=== PATIENT | female | born 1995 | race American Indian/Alaskan Native ===

== ENCOUNTER 2016-12-01 10:10 | Emergency (ER) | payer OTHER, BC ==
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
[2016-12-01] MEDS ORDERED: Ketorolac 30 MG/ML SDV IM ONE (12:32)
[2016-12-01] MEDS ORDERED: Dexamethasone 4 MG/ML SDV IM ONE (12:32)
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
[2016-12-01 13:49] VITALS: BP 118/72
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
== END 2016-12-01 13:50 | disposition home or self-care (01) ==
LOC: DL.ED 10:10
DX: S39.012A Strain of muscle, fascia and tendon of lower back, initial encounter (principal); E66.9 Obesity, unspecified; F41.9 Anxiety disorder, unspecified; F32.9 Major depressive disorder, single episode, unspecified; Z87.891 Personal history of nicotine dependence; Z88.1 Allergy status to other antibiotic agents; Z88.8 Allergy status to other drugs, medicaments and biological substances; Z91.018 Allergy to other foods; Z79.899 Other long term (current) drug therapy; Z88.0 Allergy status to penicillin; Z88.2 Allergy status to sulfonamides; X58.XXXA Exposure to other specified factors, initial encounter
CPT/HCPCS: 72128; 72131; 96372; 99284; J1100; J1885

== ENCOUNTER 2016-12-03 12:42 | Emergency (ER) | payer OTHER, BC ==
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
== END 2016-12-03 13:56 | disposition home or self-care (01) ==
LOC: DL.ED 12:42
CPT/HCPCS: 99283

== ENCOUNTER 2017-12-02 12:40 | Emergency (ER) | payer BC, OTHER ==
[2017-12-02 12:51] VITALS: BP 136/86
[2017-12-02 13:41] LABS: CHLORIDE,CL 101 mmol/L (101-111); SODIUM,NA 137 mmol/L (135-145)
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
== END 2017-12-02 15:40 | disposition home or self-care (01) ==
LOC: DL.ED 12:40
DX: O03.4 Incomplete spontaneous abortion without complication (principal); N91.2 Amenorrhea, unspecified; Z88.1 Allergy status to other antibiotic agents; Z88.0 Allergy status to penicillin; Z88.2 Allergy status to sulfonamides; Z88.8 Allergy status to other drugs, medicaments and biological substances; Z79.899 Other long term (current) drug therapy; Z87.891 Personal history of nicotine dependence
CPT/HCPCS: 36415; 80053; 80305; 81001; 81025; 84702; 85025; 99284; G0480

== ENCOUNTER 2018-04-13 06:16 | Day surgery (SDC) | payer BC ==
[2018-04-13] MEDS ORDERED: Ondansetron 4 MG/2 ML SDV IV ONE (06:17)
[2018-04-13] MEDS ORDERED: Propofol 200 MG/20 ML SDV IV ONE (06:17)
[2018-04-13] MEDS ORDERED: Dexamethasone 4 MG/ML SDV IV ONE (06:17)
[2018-04-13] MEDS ORDERED: Lidocaine 2% 20 ML MDV INJECT ONE (06:17)
[2018-04-13] MEDS ORDERED: Ketorolac 30 MG/ML SDV IVPUSH ONE (06:17)
[2018-04-13] MEDS ORDERED: Midazolam 1 MG/ML 2 ML SDV IV ONE (06:17)
[2018-04-13] MEDS ORDERED: fentaNYL 250 MCG/5 ML SDV IV ONE (06:17)
[2018-04-13] MEDS ORDERED: Lactated Ringers 1,000 ML IV SCH (07:04)
[2018-04-13] MEDS ORDERED: Ferric Subsulfate Topical Soln 8 GM (8 ML) Bottle ONE (07:36)
[2018-04-13] MEDS ORDERED: Silver Nitrate Applicator Each ONE (07:36)
[2018-04-13] MEDS ORDERED: Gentamicin 40 MG/ML 2 ML Vial ONE (08:11)
[2018-04-13] MEDS ORDERED: Sodium Chloride 0.9% 100 ML ONE ×2 (08:12→08:14)
[2018-04-13] MEDS ORDERED: Clindamycin Phosphate 600 MG/4 ML SDV ONE (08:12)
[2018-04-13] MEDS ORDERED: Clindamycin Phosphate 600 MG in Sodium Chloride 0.9% 100 ML IV ONE (08:13)
[2018-04-13] MEDS ORDERED: Acetaminophen 325 MG Tab PO PRN (08:45)
[2018-04-13] MEDS ORDERED: Ondansetron 4 MG/2 ML SDV IVPUSH PRN (08:45)
[2018-04-13] MEDS ORDERED: Ketorolac 30 MG/ML SDV IVPUSH SCH (09:00)
[2018-04-13 11:59] VITALS: BP 121/72
--- NOTE | 2018-04-13 15:59 | OR ---
DATE: PREOPERATIVE DIAGNOSIS: Menometrorrhagia. POSTOPERATIVE DIAGNOSIS: Menometrorrhagia. PROCEDURES: Diagnostic hysteroscopy with dilation and curettage. ESTIMATED BLOOD LOSS: 5 mL. DRAINS: None. PATHOLOGY: Uterine curetting sent. ANESTHESIA: General anesthesia. COMPLICATIONS: None. FINDINGS: Slightly thickened endometrial cavity. Normal tubal ostiums. Normal fundus, anterior wall, posterior wall, left lateral sidewall, right lateral sidewall, and endocervix. The cervix and vagina were completely normal appearing. PROCEDURE IN DETAIL: The patient was taken back to the operating room with IV running. She was placed supine on the operating room table. After adequate general anesthesia was obtained, she was prepped and draped in the usual sterile fashion in the dorsal lithotomy position. A speculum was placed in the posterior vaginal vault. The anterior lip of the cervix was grasped with a single-tooth tenaculum. The cervix was sounded to 7.5 cm. Then the cervix was dilated up to a #8 Hegar dilator. At this point, the hysteroscope was placed into the intrauterine cavity, and the entire cavity was inspected. Left lateral sidewall, right lateral sidewall, fundus, anterior wall, posterior wall, right tubal ostium, left tubal ostium; they all appeared normal. There were some thickened lining and some blood in the cavity. The hysteroscope was removed. At this point, a curettage with a sharp curette occurred to the entire endometrial cavity until gritty texture was noted. Once this was accomplished, the specimens were sent to Pathology. All the instruments from the vagina were removed. Excellent hemostasis was noted. The patient tolerated the procedure quite well. All sponges, needle, and instrument counts were correct by the nurse in attendance x2. The patient received 80 mg of gentamicin and 600 mg of clindamycin at the beginning of the case. The patient was taken to PACU in an awake and stable condition. [facility] /[id number]
== END 2018-04-13 10:46 | disposition home or self-care (01) ==
LOC: DL.SDS 06:16
PROVIDERS: ATTEND Obstetrics & Gynecology
DX: N92.1 Excessive and frequent menstruation with irregular cycle (principal); F17.210 Nicotine dependence, cigarettes, uncomplicated; E66.9 Obesity, unspecified; F41.9 Anxiety disorder, unspecified; F32.9 Major depressive disorder, single episode, unspecified; Z79.899 Other long term (current) drug therapy; Z88.0 Allergy status to penicillin; Z88.1 Allergy status to other antibiotic agents; Z88.8 Allergy status to other drugs, medicaments and biological substances; Z97.5 Presence of (intrauterine) contraceptive device
CPT/HCPCS: 81025; J1100; J1580; J1885; J2250; J2405; J2704; J3010; J7050; J7120; S0077

== ENCOUNTER 2019-10-24 08:44 | Emergency (ER) | payer SELFPAY ==
[2019-10-24 09:01] VITALS: BP 155/75; PULSE 95
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
== END 2019-10-24 10:06 | disposition home or self-care (01) ==
LOC: DL.ED 08:44
DX: S93.401A Sprain of unspecified ligament of right ankle, initial encounter (principal); E66.9 Obesity, unspecified; Z68.35 Body mass index [BMI] 35.0-35.9, adult; Z88.0 Allergy status to penicillin; Z88.2 Allergy status to sulfonamides; Z91.013 Allergy to seafood; Z91.018 Allergy to other foods; W00.0XXA Fall on same level due to ice and snow, initial encounter
CPT/HCPCS: 73610-RT; 99282; 99283-25

== ENCOUNTER 2020-10-05 09:49 | Emergency (ER) | payer SELFPAY ==
[2020-10-05 10:22] VITALS: BP 130/76; PULSE 74
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
[2020-10-05] MEDS: Ketorolac 30 MG/ML SDV IM ONE (11:22)
--- NOTE | 2020-10-05 11:27 | CR ---
PROCEDURE INFORMATION: Exam: XR Pelvis Exam date and time: 10/05/2020 10:49 AM Age: 25 years old Clinical indication: Pelvic pain; Additional info: Low back pain TECHNIQUE: Imaging protocol: XR pelvis. Views: 1 or 2 view. COMPARISON: CT Chest Abdomen Pelvis w Cont 08/01/2016 8:15 AM FINDINGS: Bones/joints: Unremarkable. No acute fracture. Soft tissues: Unremarkable. IMPRESSION: No acute findings.
--- NOTE | 2020-10-05 11:27 | CR ---
PROCEDURE INFORMATION: Exam: XR Lumbosacral Spine, 2 or 3 Views Exam date and time: 10/05/2020 10:51 AM Age: 25 years old Clinical indication: Low back pain TECHNIQUE: Imaging protocol: XR of the lumbosacral spine, 2 or 3 views. COMPARISON: CT Lumbar Spine wo Cont 12/01/2016 11:34 AM FINDINGS: Bones/joints: Normal. No acute fracture. Normal alignment. Soft tissues: Unremarkable. IMPRESSION: No acute findings.
== END 2020-10-05 11:25 | disposition home or self-care (01) ==
LOC: DL.ED 09:49
DX: S39.92XA Unspecified injury of lower back, initial encounter (principal); E66.9 Obesity, unspecified; Z68.35 Body mass index [BMI] 35.0-35.9, adult; Z88.0 Allergy status to penicillin; Z88.1 Allergy status to other antibiotic agents; Z88.2 Allergy status to sulfonamides; Z88.8 Allergy status to other drugs, medicaments and biological substances; Z91.011 Allergy to milk products; Z91.018 Allergy to other foods; Z91.013 Allergy to seafood; V89.2XXA Person injured in unspecified motor-vehicle accident, traffic, initial encounter
CPT/HCPCS: 72100; 72170; 81025; 96372; 99284; J1885

== ENCOUNTER 2021-01-03 06:11 | Emergency (ER) | payer SELFPAY ==
[2021-01-03 06:46] VITALS: BP 140/92; PULSE 104
[2021-01-03] MEDS ORDERED: Sodium Chloride 0.9% 1,000 ML IV ONE (06:49)
[2021-01-03] MEDS ORDERED: Ondansetron 4 MG/2 ML SDV IVPUSH ONE (06:49)
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
[2021-01-03 07:20] LABS: CORONAVIRUS COVID-19 NAA NEGATIVE (NEGATIVE)
[2021-01-03 07:26] LABS: ANION GAP 16.5 mEq/L (7-13); CHLORIDE,CL 102 mmol/L (98-107); SODIUM,NA 141 mmol/L (136-145)
== END 2021-01-03 08:53 | disposition home or self-care (01) ==
LOC: DL.ED 06:11
DX: A08.4 Viral intestinal infection, unspecified (principal); E86.0 Dehydration; E66.9 Obesity, unspecified; Z68.34 Body mass index [BMI] 34.0-34.9, adult; Z20.822 Contact with and (suspected) exposure to COVID-19; Z88.0 Allergy status to penicillin; Z88.1 Allergy status to other antibiotic agents; Z88.2 Allergy status to sulfonamides; Z91.013 Allergy to seafood; Z91.048 Other nonmedicinal substance allergy status; Z88.8 Allergy status to other drugs, medicaments and biological substances
CPT/HCPCS: 0240U; 36415; 80053; 84703; 85025; 96374; 99283; 99284; J2405; J7030